=== PATIENT | female | born 1935 | race Caucasian/White ===

== ENCOUNTER → 2017-02-01 | Outpatient (CLI) | payer MEDICARE ==
--- NOTE | 2017-02-03 11:20 | MM ---
Reason for exam: additional evaluation requested from prior study. Last mammogram was performed 2 years and 9 months ago. History: Patient is postmenopausal and has history of breast cancer at age 80. Benign US breast localization LT, November 12, 2015. Malignant MG stereo VAD BX LT of the left breast, October 15, 2015. Benign US biopsy breast VAD RT of the right breast, April 26, 2014. Benign excisional biopsy of the left breast, 1979. Benign excisional biopsy of the right breast, 1979. Physical Findings: Nurse did not find any significant physical abnormalities on exam. MG 3D Diag Mammo W/Cad OSMAR Bilateral CC and MLO view(s) were taken. Prior study comparison: September 11, 2015, mammogram, performed at [facility]. September 02, 2015, mammogram, performed at [facility]. April 26, 2014, right breast MG diagnostic mammo RT wo CAD. April 26, 2014, right breast MG work up mamm w CAD RT. The breast tissue is heterogeneously dense. This may lower the sensitivity of mammography. Finding: There are typically benign vascular calcifications in both breasts. There are new clips in the left posterior breast. Previous mammotome biopsy in the right breast. There is a chronic nodularity in the right breast. There is no discrete abnormality. These results were verbally communicated with the patient on 02/03/17. ASSESSMENT: Benign, BI-RAD 2 RECOMMENDATION: Routine screening mammogram of both breasts. Manage on a clinical basis with regard to left nipple inversion, recent lumpectomy.
== END | disposition home or self-care (01) ==
LOC: RADMAMWWP 13:32
PROVIDERS: ATTEND Surgery
DX: R92.8 Other abnormal and inconclusive findings on diagnostic imaging of breast (principal)
CPT/HCPCS: G0204; G0279

== ENCOUNTER → 2018-03-03 | Outpatient (CLI) | payer MEDICARE ==
--- NOTE | 2018-03-04 14:00 | MM ---
Reason for exam: screening (asymptomatic). Last mammogram was performed 1 year and 1 month ago. History: Patient is postmenopausal and has history of breast cancer at age 80. Benign US breast localization LT, November 12, 2015. Malignant MG stereo VAD BX LT of the left breast, October 15, 2015. Benign US biopsy breast VAD RT of the right breast, April 26, 2014. Benign excisional biopsy of the left breast, 1979. Benign excisional biopsy of the right breast, 1979. Physical Findings: A clinical breast exam by your physician is recommended on an annual basis and results should be correlated with mammographic findings. MG 3D Screening Mammo W/Cad Bilateral CC and MLO view(s) were taken. XCCM view(s) were taken of the left breast. Prior study comparison: February 01, 2017, bilateral MG 3d diag mammo w/cad OSMAR. September 11, 2015, mammogram, performed at [facility]. The breast tissue is heterogeneously dense. This may lower the sensitivity of mammography. Benign appearing bilateral calcifications. Left surgical clips. Post biopsy change bilaterally. Biopsy marker on right noted. ASSESSMENT: Benign, BI-RAD 2 RECOMMENDATION: Routine screening mammogram of both breasts in 1 year.
== END | disposition home or self-care (01) ==
LOC: RADMAMWWP 10:35
PROVIDERS: ATTEND Family Medicine
DX: Z12.31 Encounter for screening mammogram for malignant neoplasm of breast (principal)
CPT/HCPCS: 77063; 77067